=== PATIENT | male | born 1975 | race Caucasian/White ===

== ENCOUNTER → 2017-10-18 | Outpatient (CLI) | payer OTHER ==
[~2017-10-18] MED LIST: CIPR-255 PO; TRAM-10 PO
[2017-10-18 15:02] LABS: BASO % 0.2 %; BASO ABS # 0.01 K/uL (0-0.2); EOS % 1.8 %; EOS ABS # 0.08 K/uL (0-0.5); HEMATOCRIT 38.9 % (42-52); HEMOGLOBIN 13.8 g/dL (14.0-18.0); IG# 0.04 K/uL (0.00-0.02); LYMPH % 28.4 %; LYMPH ABS # 1.24 K/uL (1.2-3.4); MEAN CELL VOLUME 90.9 fL (80-100); MEAN CORPUSCULAR HEMOGLOBIN 32.2 pg (25-34); MEAN CORPUSCULAR HGB CONC 35.5 g/dl (32-36); MEAN PLATELET VOLUME 9.6 fL (7.4-10.4); MONO % 5.7 %; MONO ABS # 0.25 K/uL (0.11-0.59); NEUT ABS # 2.75 K/uL (1.4-6.5); PLATELET COUNT 194 K/uL (130-400); RED CELL DISTRIBUTION WIDTH CV 12.9 % (11.5-14.5); WHITE BLOOD COUNT 4.37 K/uL (4.8-10.8)
== END | disposition home or self-care (01) ==
LOC: C.LAB 14:40
PROVIDERS: ATTEND Internal Medicine
DX: M13.0 Polyarthritis, unspecified (principal)